=== PATIENT | female | born 1950 | race Caucasian/White ===

== ENCOUNTER 2018-02-13 10:42 | Emergency (ER) | payer BC ==
[~2018-02-13] VITALS: Ht 157.5 cm; Wt 79.5 kg
[2018-02-13 10:51] VITALS: BP_SYST 184; BP_SYST 186; BP_DIAS 80; BP_DIAS 84; PULSE 65; RESP 18; TEMP 98.7; O2SAT 98
--- NOTE | 2018-02-13 11:03 | PD ---
HPI Chief Complaint: Fall Time Seen by Provider: 11:02 Travel History International Travel<30 days: No Contact w/Intl Traveler<30days: No Traveled to known affect area: No History of Present Illness HPI 67-year-old female with history of hypertension and diabetes, presents emergency department for evaluation. Patient fell off a ladder approximately 1 hour ago. She fell approximately 5 feet, landing on her right side. She states that she hit her chest, right elbow, and right hip. She is having significant pain since the fall. It is constant, throbbing, exacerbated with movement or deep breathing. She states her chest pain is worse when she lies backwards. She is nauseous. She did not strike her head or lose consciousness. She denies any focal deficits or weakness. She has no other symptoms to report at this time. [facility] Past Medical History Diabetes: Yes Hypertension: Yes Social History Tobacco Use: No Allergies-Medications (Allergen,Severity, Reaction): Coded Allergies: Iodinated Contrast- Oral and IV Dye (Verified Allergy, Severe, 02/13/18) Sulfa (Sulfonamide Antibiotics) (Verified Allergy, Severe, 02/13/18) Reported Meds & Prescriptions Reported Meds & Active Scripts Active Reported Bystolic (Nebivolol) 2.5 Mg Tab 2.5 Mg PO DAILY Metformin (Metformin HCl) 500 Mg Tab 500 Mg PO DAILY With a meal Review of Systems Except as stated in HPI: all other systems reviewed are Neg Physical Exam Narrative GENERAL: Well-nourished female patient, lying in bed, appears uncomfortable but without distress. SKIN: Focused skin assessment warm/dry. Abrasion and hematoma on the right elbow HEAD: Atraumatic. Normocephalic. EYES: Pupils equal and round. No scleral icterus. No injection or drainage. ENT: No nasal bleeding or discharge. Mucous membranes pink and moist. NECK: Trachea midline. No JVD. No cervical spine tenderness. CARDIOVASCULAR: Regular rate and rhythm. No murmur appreciated. RESPIRATORY: No accessory muscle use. Diminished due to poor inspiratory effort. Tenderness elicited palpation of the anterior lateral right chest. No crepitus. Even respirations.. Breath sounds equal bilaterally. GASTROINTESTINAL: Abdomen soft, nondistended. Right upper quadrant tenderness to palpation mild guarding. No rebound tenderness. Hepatic and splenic margins not palpable. MUSCULOSKELETAL: No obvious deformities. No clubbing. No cyanosis. Patient is able to flex and extend the right elbow. She can supinate and pronate his forearm. Distal pulses are palpable. Hand Splitter strengths are equal bilateral. Patient does report pain with flexion and outward rotation of the right hip. There is no shortening or rotation of the lower extremity. Distal pulses are palpable. Sensation intact distal affected extremity. NEUROLOGICAL: Awake and alert. No obvious cranial nerve deficits. Motor grossly within normal limits. Normal speech. PSYCHIATRIC: Appropriate mood and affect; insight and judgment normal. Data Data Last Documented VS Vital Signs Date Time Temp Pulse Resp B/P (MAP) Pulse Ox O2 Delivery O2 Flow Rate FiO2 02/13/18 11:28 18 96 Room Air 02/13/18 10:51 98.7 65 186/80 (115) 184/84 (117) Orders Orders Electrocardiogram (02/13/18 ) Ct Thorax/ Chest Wo Iv Contras (02/13/18 ) Ct Abd/Pel W/O Iv Contrast (02/13/18 ) Elbow, Complete (4 Vws) (02/13/18 ) Hip, Uni(Ap&Lat) W Ap Pelvis (02/13/18 ) Oxycodone-Acetamin 5-325 Mg (Percocet (02/13/18 11:15) Ondansetron Odt (Zofran Odt) (02/13/18 11:15) Iv Access Insert/Monitor (02/13/18 11:16) Complete Blood Count With Diff (02/13/18 11:16) Basic Metabolic Panel (Bmp) (02/13/18 11:16) Coag Profile (02/13/18 11:16) Labs Laboratory Tests Test 02/13/18 11:27 White Blood Count 11.1 TH/MM3 Red Blood Count 4.85 MIL/MM3 Hemoglobin 13.3 GM/DL Hematocrit 39.1 % Mean Corpuscular Volume 80.6 FL Mean Corpuscular Hemoglobin 27.3 PG Mean Corpuscular Hemoglobin Concent 33.9 % Red Cell Distribution Width 14.8 % Platelet Count 232 TH/MM3 Mean Platelet Volume 9.6 FL Neutrophils (%) (Auto) 78.3 % Lymphocytes (%) (Auto) 14.5 % Monocytes (%) (Auto) 6.5 % Eosinophils (%) (Auto) 0.4 % Basophils (%) (Auto) 0.3 % Neutrophils # (Auto) 8.7 TH/MM3 Lymphocytes # (Auto) 1.6 TH/MM3 Monocytes # (Auto) 0.7 TH/MM3 Eosinophils # (Auto) 0.0 TH/MM3 Basophils # (Auto) 0.0 TH/MM3 CBC Comment DIFF FINAL Differential Comment Prothrombin Time 10.0 SEC Prothromb Time International Ratio 1.0 RATIO Activated Partial Thromboplast Time 23.2 SEC Blood Urea Nitrogen 19 MG/DL Creatinine 1.26 MG/DL Random Glucose 203 MG/DL Calcium Level 9.3 MG/DL Sodium Level 141 MEQ/L Potassium Level 4.9 MEQ/L Chloride Level 109 MEQ/L Carbon Dioxide Level 23.9 MEQ/L Anion Gap 8 MEQ/L Estimat Glomerular Filtration Rate 43 ML/MIN [facility] Medical Decision Making Medical Screen Exam Complete: Yes Emergency Medical Condition: Yes Medical Record Reviewed: Yes Differential Diagnosis Fracture versus sprain versus contusion versus pneumothorax versus visceral injury Narrative Course 67-year-old female presents emergency department after falling 5 feet from a ladder. Patient appears uncomfortable but without distress. She is treated for pain. Patient is allergic to contrast dye. CT imaging of the chest, abdomen and pelvis are ordered as well as x-ray of the right hip and right elbow. Laboratory Tests Test 02/13/18 11:27 White Blood Count 11.1 TH/MM3 Red Blood Count 4.85 MIL/MM3 Hemoglobin 13.3 GM/DL Hematocrit 39.1 % Mean Corpuscular Volume 80.6 FL Mean Corpuscular Hemoglobin 27.3 PG Mean Corpuscular Hemoglobin Concent 33.9 % Red Cell Distribution Width 14.8 % Platelet Count 232 TH/MM3 Mean Platelet Volume 9.6 FL Neutrophils (%) (Auto) 78.3 % Lymphocytes (%) (Auto) 14.5 % Monocytes (%) (Auto) 6.5 % Eosinophils (%) (Auto) 0.4 % Basophils (%) (Auto) 0.3 % Neutrophils # (Auto) 8.7 TH/MM3 Lymphocytes # (Auto) 1.6 TH/MM3 Monocytes # (Auto) 0.7 TH/MM3 Eosinophils # (Auto) 0.0 TH/MM3 Basophils # (Auto) 0.0 TH/MM3 CBC Comment DIFF FINAL Differential Comment Prothrombin Time 10.0 SEC Prothromb Time International Ratio 1.0 RATIO Activated Partial Thromboplast Time 23.2 SEC Blood Urea Nitrogen 19 MG/DL Creatinine 1.26 MG/DL Random Glucose 203 MG/DL Calcium Level 9.3 MG/DL Sodium Level 141 MEQ/L Potassium Level 4.9 MEQ/L Chloride Level 109 MEQ/L Carbon Dioxide Level 23.9 MEQ/L Anion Gap 8 MEQ/L Estimat Glomerular Filtration Rate 43 ML/MIN Last Impressions Hip and Pelvis X-Ray 02/13/18 Signed Impressions: CONCLUSION: Mild degenerative changes without fracture. Elbow X-Ray 02/13/18 Signed Impressions: CONCLUSION: No acute fracture. Chest CT 02/13/18 0000 Signed Impressions: CONCLUSION: 1. Scattered parenchymal densities in the right middle lobe and right lower lo be could be infectious/inflammatory. 2. Subcentimeter pulmonary nodules. 3. No pneumothorax or hemothorax. Abdomen/Pelvis CT 02/13/18 Signed Impressions: CONCLUSION: 1. No abdominal visceral injury. 2. Status post cholecystectomy. 3. Diverticulosis without diverticulitis Findings are discussed with my attending physician. They are also reviewed with the patient. She is encouraged to seek outpatient follow-up. She is counseled on incentive spirometry and encouraged to use this. She agrees to return immediately with acute worsening symptoms. Diagnosis Primary Impression: Pulmonary contusion Qualified Codes: S27.321A - Contusion of lung, unilateral, initial encounter Additional Impressions: Elbow contusion Qualified Codes: S50.01XA - Contusion of right elbow, initial encounter Contusion, hip Qualified Codes: S70.01XA - Contusion of right hip, initial encounter Referrals: Primary Care Physician Patient Instructions: General Instructions, How to Use an Incentive Spirometer (ED), Pulmonary Contusion (ED) Additional Instructions: Ice to the affected area, 20 minutes on, 20 minutes off. Please make sure there is a barrier between her skin and the ice Follow-up with your primary care provider Seek follow-up for pulmonary nodules identified on CT examination. Repeat CT imaging should be done within the next 6 months Return immediately with acute worsening symptoms Med/Other Pt SpecificInfo: Prescription(s) given Scripts Ibuprofen (Ibuprofen) 600 Mg Tab 600 MG PO Q8H Y for PAIN, #30 TAB 0 Refills Prov: Chantel Alatorre 02/13/18 Hydrocodone-Acetaminophen ([place]) 5 Mg-325 Mg Tab 1 TAB PO Q6H Y for PAIN GREATER THAN 6, #12 TAB 0 Refills Prov: Chantel Alatorre 02/13/18 Disposition: 01 DISCHARGE HOME Condition: Stable Chantel Alatorre Feb 13, 2018 11:03
[2018-02-13] MEDS ORDERED: BYST2.5T2 PO (11:05)
[2018-02-13] MEDS ORDERED: METF500T PO (11:05)
[2018-02-13] MEDS ORDERED: oxyCODONE/ACETAMINOPHEN 5 MG/325 MG TAB PO ONE (11:15)
[2018-02-13] MEDS ORDERED: ONDANSETRON ODT 4 MG TAB PO ONE (11:15)
--- NOTE | 2018-02-13 12:10 | RADRPT ---
EXAM DATE: 02/13/2018 12:06 PM EDT AGE/SEX: 67 years / Female INDICATIONS: Pain. Fall. CLINICAL DATA: This is the patient's initial encounter. Patient reports that signs and symptoms have been present for 1 day and indicates a pain score of 4/10. MEDICAL/SURGICAL HISTORY: None. None. COMPARISON: No prior exams available for comparison. FINDINGS: Bony structures are intact and in normal alignment. Joints are intact without dislocation or signifi cant arthropathy. Osseous density is normal. Soft tissues are unremarkable. No radiopaque foreign bodies seen. CONCLUSION: No acute fracture. Electronically signed by: Rodolfo Arambula MD 02/13/2018 12:09 PM EDT
[2018-02-13 12:12] LABS: AUTOMATED NEUTROPHIL # 8.7 TH/MM3 (1.8-7.7); BASOPHIL % 0.3 % (0.0-2.0); EOSINOPHIL % 0.4 % (0.0-4.0); HEMATOCRIT 39.1 % (35.0-46.0); HEMOGLOBIN 13.3 GM/DL (11.6-15.3); LYMPH % 14.5 % (9.0-44.0); LYMPHOCYTE # 1.6 TH/MM3 (1.0-4.8); MEAN CELL VOLUME 80.6 FL (80.0-100.0); MEAN CORPUSCULAR HEMOGLOBIN 27.3 PG (27.0-34.0); MEAN CORPUSCULAR HGB CONC 33.9 % (32.0-36.0); MEAN PLATELET VOLUME 9.6 FL (7.0-11.0); MONO % 6.5 % (0.0-8.0); MONOCYTE # 0.7 TH/MM3 (0-0.9); NEUT % 78.3 % (16.0-70.0); PLATELET COUNT 232 TH/MM3 (150-450); RED BLOOD COUNT 4.85 MIL/MM3 (4.00-5.30); RED CELL DISTRIBUTION WIDTH 14.8 % (11.6-17.2); WHITE BLOOD COUNT 11.1 TH/MM3 (4.0-11.0)
--- NOTE | 2018-02-13 12:13 | RADRPT ---
EXAM DATE: 02/13/2018 12:08 PM EDT AGE/SEX: 67 years / Female INDICATIONS: Pain. Fall. CLINICAL DATA: This is the patient's initial encounter. Patient reports that signs and symptoms have been present for 1 day and indicates a pain score of 8/10. MEDICAL/SURGICAL HISTORY: None. None. COMPARISON: No prior exams available for comparison. FINDINGS: Bony structures are intact and in normal alignment. . Mild degenerative changes right hip without fr acture. Mild sclerosis of the right SI joint. Soft tissues are unremarkable. No radiopaque foreign bodies seen. CONCLUSION: Mild degenerative changes without fracture. Electronically signed by: Rodolfo Arambula MD 02/13/2018 12:12 PM EDT
--- NOTE | 2018-02-13 12:42 | RADRPT ---
EXAM DATE: 02/13/2018 12:37 PM EDT AGE/SEX: 67 years / Female INDICATIONS: Fall from ladder last night, chest wall pain. CLINICAL DATA: This is the patient's initial encounter. Patient reports that signs and symptoms have been present for 1 day and indicates a pain score of 5/10. MEDICAL/SURGICAL HISTORY: Hypertension. Diabetes. Appendectomy. Cholecystectomy. Hysterectomy. RADIATION DOSE: 19.31 CTDI (mGy) ; Combined studies COMPARISON: No prior exams available for comparison. TECHNIQUE: Multiple contiguous axial images were obtained through the chest without contrast. Image s were obtained in suspended respiration using multiple row detector helical technique. Using automa annabella exposure control and adjustment of the mA and/or kV according to patient size, radiation dose was kept as low as reasonably achievable to obtain optimal diagnostic quality images. DICOM format imag e data is available electronically for review and comparison. FINDINGS: Lungs: Scattered parenchymal densities in the right middle lobe and right lower lobe. 6 mm nodule in the left lower lobe and lateral right upper lobe Mediastinum: There is good visualization of the great vessels of the middle mediastinum. No evidenc e of mediastinal or hilar adenopathy/mass. Pleurae: No evidence of focal thickening or pleural effusion. Axillae: Unremarkable. Bony Structures: Unremarkable. Miscellaneous: The examination was extended to include the upper abdomen, and both adrenal glands ar e normal in size and configuration. CONCLUSION: 1. Scattered parenchymal densities in the right middle lobe and right lower lobe could be infectious /inflammatory. 2. Subcentimeter pulmonary nodules. 3. No pneumothorax or hemothorax. Electronically signed by: Rodolfo Arambula MD 02/13/2018 12:41 PM EDT
[2018-02-13 12:58] LABS: BICARBONATE 23.9 MEQ/L (21.0-32.0); CALCIUM 9.3 MG/DL (8.5-10.1); CREATININE 1.26 MG/DL (0.50-1.00)
--- NOTE | 2018-02-13 13:03 | RADRPT ---
EXAM DATE: 02/13/2018 12:33 PM EDT AGE/SEX: 67 years / Female INDICATIONS: Fall from ladder last night. CLINICAL DATA: This is the patient's initial encounter. Patient reports that signs and symptoms have been present for 1 day and indicates a pain score of 5/10. MEDICAL/SURGICAL HISTORY: Hypertension. Diabetes. Appendectomy. Cholecystectomy. Hysterectom y. RADIATION DOSE: 19.31 CTDI (mGy) ; Combined studies COMPARISON: No prior exams available for comparison. TECHNIQUE: Multiple contiguous axial images were obtained through the abdomen. Images were obtained using multiple row detector helical technique. Using automated exposure control and adjustment of the mA and/or kV according to patient size, radiation dose was kept as low as reasonably achievable to o btain optimal diagnostic quality images. DICOM format image data is available electronically for rev iew and comparison. FINDINGS: Lower Lungs: The visualized lower lungs are clear. Liver: The liver has a homogeneous density without space-occupying lesion. Cholecystectomy clips. The re is no dilation of the biliary tree. Spleen: Homogeneous density without enlargement. Pancreas: Unremarkable without mass or calcification. Kidneys: Normal in size and shape. No evidence of mass or hydronephrosis. Adrenal Glands: Unremarkable. Aorta: The aorta and proximal iliac vessels are grossly unremarkable without aneurysmal dilation. Bowel/Mesentery: Diverticulosis of the colon without diverticulitis. Abdominal Wall: Intact. Retroperitoneum: No evidence of adenopathy in the retrocrural, para-aortic, or deep pelvic regions. Bladder: Contours are smooth. Reproductive Organs: No abnormal masses or calcifications seen. Inguinal: The inguinal region is unremarkable without evidence of adenopathy. Bony Structures: Unremarkable. CONCLUSION: 1. No abdominal visceral injury. 2. Status post cholecystectomy. 3. Diverticulosis without diverticulitis Electronically signed by: Rodolfo Arambula MD 02/13/2018 1:02 PM EDT
[2018-02-13] MEDS ORDERED: IBUP-232 PO (13:35)
[2018-02-13] MEDS ORDERED: NORC5TAB PO (13:35)
--- NOTE | 2018-02-13 15:10 | EKG ---
Date Performed: 02/13/2018 Time Performed: 11:04:19 PTAGE: 67 years EKG: Sinus rhythm NORMAL ECG NO PREVIOUS TRACING DOCTOR: Eliecer Beard Interpretating Date/Time 02/13/2018 15:08:11
== END 2018-02-13 13:59 | disposition home or self-care (01) ==
LOC: NEPC 10:42
DX: S27.321A Contusion of lung, unilateral, initial encounter (principal); S50.01XA Contusion of right elbow, initial encounter; S70.01XA Contusion of right hip, initial encounter; E11.9 Type 2 diabetes mellitus without complications; I10 Essential (primary) hypertension; W11.XXXA Fall on and from ladder, initial encounter; Z79.84 Long term (current) use of oral hypoglycemic drugs
CPT/HCPCS: 71250; 73080; 73502; 74176; 80048; 85025; 85610; 85730; 93005; 94150; 99285